=== PATIENT | male | born 1995 | race Caucasian/White ===

== ENCOUNTER 2016-05-31 10:06 | Emergency (ER) | payer BC ==
[2016-05-31 10:10] VITALS: TEMP 97.3
--- NOTE | 2016-05-31 10:31 | EDPHY ---
H & P Time Seen by Provider: 05/31/16 10:12 HPI/ROS: CHIEF COMPLAINT: Headache HISTORY OF PRESENT ILLNESS: 20-year-old male presents with a headache. He was awakened at 4:00 a.m. this morning with a severe headache. The headache has been generalized and constant since then. He was unable to fall back to sleep because of severe headache. Associated with nausea and mild photophobia. He is also quite dizzy when he stands up. Upper respiratory infection 2 weeks ago, completely resolved. Ibuprofen without relief. At 8:00 a.m., he developed bilateral hand numbness and numbness of his face. This numbness has resolved. No prior similar symptoms. No recent head or neck trauma. No chiropractic manipulation. REVIEW OF SYSTEMS: Constitutional: No fever, no chills Eyes: No visual changes ENT: No sore throat Respiratory: No cough, no shortness of breath Cardiac: No chest pain Gastrointestinal: no vomiting, no abdominal pain Genitourinary: No hematuria, no dysuria Musculoskeletal: No leg pain or swelling Skin: No rash Psychiatric: No depression Past Medical/Surgical History: Denies Family history: No known history of migraine headaches or aneurysm Social History: occasional alcohol use, no smoking Smoking Status: Never smoked Physical Exam: General Appearance: Alert, appears in pain Eyes: Pupils equal and round, no conjunctival pallor or injection ENT, Mouth: Mucous membranes moist Neck: Normal inspection, no meningeal signs Respiratory: Lungs are clear to auscultation Cardiovascular: Regular rate and rhythm Gastrointestinal: Abdomen is soft and nontender Neurological: Alert, oriented x3, cranial nerves II through XII intact, motor 5 /5, sensory intact to light touch, normal gait Skin: Warm and dry, no rash Extremities: Nontender, no pedal edema Psychiatric: Mood and affect normal Constitutional: Initial Vital Signs Temperature (C) 36.3 C 05/31/16 10:08 Heart Rate 68 05/31/16 10:08 Respiratory Rate 16 05/31/16 10:08 Blood Pressure 127/71 H 05/31/16 10:08 O2 Sat (%) 95 05/31/16 10:08 O2 Delivery Mode Room Air Allergies/Adverse Reactions: No Known Allergies Allergy (Unverified 05/31/16 10:10) Home Medications: Medication Instructions Recorded Valacyclovir HCl [Valtrex] 2 tab PO Q12H #4 tablet 05/31/16 Medical Decision Making - Diagnostics Imaging: CT scan of the brain read by Dr. Luque reveals a prominent anterior cerebral artery, concerning for aneurysm. Suggest MRI/A of the brain without contrast to rule out aneurysm. MRI/A of the brain read by Dr. Dayday Enrique is normal. Procedures: Procedure: Lumbar puncture. Indication: headache After verbal informed consent from patient explaining the risks of lumbar puncture including infection, bleeding, spinal headache and neurologic damage, a lumbar puncture was performed with the patient in the sitting position after the patient was prepped and draped in the usual fashion. The L4-5 interspace was anesthetized with 1% lidocaine. Approximately 4 cc of clear fluid was obtained. Opening pressure was not obtained. There were no complications. The procedure was performed by myself. ED Course/Re-evaluation: This patient presents with a severe headache. Clinical presentation is concerning for subarachnoid hemorrhage versus meningitis. Plan for CT/LP. Reglan, and Benadryl and Decadron IV given with some relief in pain and complete resolution of nausea. CT scan of the brain read by Dr. Luque reveals prominence of the anterior cerebral artery, concerning for aneurysm. MRI/A of the brain ordered. I will also proceed with lumbar puncture. The patient tolerated lumbar puncture well. IV normal saline 1 L given. Toradol 30 mg IV given. Lumbar puncture results discussed with the patient. He currently feels much better and has only a slight headache. He states that he is thinks he is starting to get a cold sore on his lip. He has previously taken Valtrex for this. I will write a prescription for Valtrex for him. Fortunately there is no evidence of viral/bacterial meningitis or encephalitis. Differential Diagnosis: Headache including but not limited to subarachnoid hemorrhage, encephalitis, migraine headache, tension headache and infectious causes such as meningitis, pharyngitis and sinusitis. - Data Points Laboratory Results: Laboratory Results 05/31/16 10:30 05/31/16 10:30 05/31/16 05/31/16 13:00 10:30 WBC 6.21 10^3/uL (3.80-9.50) RBC 5.30 10^6/uL (4.40-6.38) Hgb 17.1 g/dL (13.7-17.5) Hct 46.3 % (40.0-51.0) MCV 87.4 fL (81.5-99.8) MCH 32.3 pg (27.9-34.1) MCHC 36.9 H g/dL (32.4-36.7) RDW 11.9 % (11.5-15.2) Plt Count 300 10^3/uL (150-400) MPV 9.7 fL (8.7-11.7) Neut % (Auto) 67.7 % (39.3-74.2) Lymph % (Auto) 20.1 % (15.0-45.0) [place] % (Auto) 10.0 % (4.5-13.0) Eos % (Auto) 0.6 % (0.6-7.6) Baso % (Auto) 0.6 % (0.3-1.7) Nucleat RBC Rel Count 0.0 % (0.0-0.2) Absolute Neuts (auto) 4.20 10^3/uL (1.70-6.50) Absolute Lymphs (auto) 1.25 10^3/uL (1.00-3.00) Absolute Monos (auto) 0.62 10^3/uL (0.30-0.80) Absolute Eos (auto) 0.04 10^3/uL (0.03-0.40) Absolute Basos (auto) 0.04 10^3/uL (0.02-0.10) Absolute Nucleated RBC 0.00 10^3/uL (0-0.01) Immature Gran % 1.0 % (0.0-1.1) Immature Gran # 0.06 10^3/uL (0.00-0.10) Sodium 139 mEq/L (134-144) Potassium 4.2 mEq/L (3.5-5.2) Chloride 106 mEq/L (97-110) Carbon Dioxide 22 mEq/l (22-31) Anion Gap 11 mEq/L (8-16) BUN 11 mg/dL (7-23) Creatinine 0.8 mg/dL (0.7-1.3) Estimated GFR > 60 Glucose 103 H mg/dL (70-100) Calcium 9.7 mg/dL (8.5-10.4) CSF Tube Number 4 CSF Appearance CLEAR (CLEAR) CSF Color COLORLESS (COLORLESS) CSF Supernatant Not Reported CSF WBC 0 /mm3 (0-5) CSF RBC 0 /mm3 (0-0) CSF Glucose 56 mg/dL (50-75) CSF Total Protein 30 mg/dL (12-60) Microbiology Results: MICROBIOLOGY 05/31/16 13:00 Cerebral Spinal Fluid Gram Stain - Final Medications Given: Discontinued Medications Dexamethasone (Decadron Injection) 10 mg IVP EDNOW ONE Stop: 05/31/16 10:33 Last Admin: 05/31/16 10:57 Dose: 10 mg Diphenhydramine HCl (Benadryl Injection) 25 mg IVP EDNOW ONE Stop: 05/31/16 10:33 Last Admin: 05/31/16 10:57 Dose: 25 mg Sodium Chloride (Ns) 1,000 mls @ 0 mls/hr IV ONCE ONE PRN Reason: Wide Open Stop: 05/31/16 10:33 Last Admin: 05/31/16 10:57 Dose: 1,000 mls Sodium Chloride (Ns) 1,000 mls @ 0 mls/hr IV ONCE ONE PRN Reason: Wide Open Stop: 05/31/16 13:06 Last Admin: 05/31/16 13:18 Dose: 1,000 mls Ketorolac Tromethamine (Toradol) 30 mg IVP EDNOW ONE Stop: 05/31/16 13:53 Last Admin: 05/31/16 14:04 Dose: 30 mg Metoclopramide HCl (Reglan Injection) 10 mg IVP EDNOW ONE Stop: 05/31/16 10:33 Last Admin: 05/31/16 10:57 Dose: 10 mg Morphine Sulfate (Morphine) 4 mg IVP EDNOW ONE Stop: 05/31/16 13:06 Last Admin: 05/31/16 13:18 Dose: 4 mg Departure - Departure Disposition: Home, Routine, Self-Care Clinical Impression: Headache Qualifiers: Headache type: unspecified Headache chronicity pattern: acute headache Intractability: not intractable Qualifier Code: (R51) Headache Condition: Good Instructions: Acute Headache (ED) Additional Instructions: Your CT scan, MRI and lumbar puncture (spinal tap) are normal today. Take ibuprofen 600mg 3 times daily as needed for headache. Return for worsening symptoms or any concerns. Referrals: Herman Cuevas DO [Medical Doctor] - As per Instructions (Call to make an appointment.) Stand Alone Forms: School Excuse Prescriptions: Valacyclovir HCl [Valtrex] 2 tab PO Q12H #4 tablet
[2016-05-31] MEDS ORDERED: NS 1,000 ML IV ONE ×2 (10:32→13:05)
[2016-05-31] MEDS ORDERED: DEXAMETHASONE 10 MG/ML VIAL IVP ONE (10:32)
[2016-05-31] MEDS ORDERED: METOCLOPRAMIDE 10 MG/2 ML VIAL IVP ONE (10:32)
[2016-05-31 10:48] LABS: ABSOLUTE IMMATURE GRANULOCYTES 0.06 10^3/uL (0.00-0.10); ADD DIFF? NO; ADD MORPH? NO; ADD SCAN? NO; ATYPICAL LYMPHOCYTE FLAG 30 (0-99); FRAGMENT RBC FLAG 10 (0-99); HEMATOCRIT 46.3 % (40.0-51.0); HEMOGLOBIN 17.1 g/dL (13.7-17.5); LEFT SHIFT FLG 10 (0-99); LIPEMIA HEMOLYSIS FLAG 90 (0-99); MEAN CELL HEMOGLOBIN 32.3 pg (27.9-34.1); MEAN CELL HEMOGLOBIN CONCENTR. 36.9 g/dL (32.4-36.7); MEAN CELL VOLUME 87.4 fL (81.5-99.8); MEAN PLATELET VOLUME 9.7 fL (8.7-11.7); PLATELET CLUMPS FLAG 0 (0-99); PLATELET COUNT 300 10^3/uL (150-400); RED CELL DISTRIBUTION WIDTH 11.9 % (11.5-15.2)
--- NOTE | 2016-05-31 10:58 | CT ---
CT Head Without Contrast, 1047 a.m. History: Frontal headaches since 4 a.m., no trauma. Technique: Noncontrast images through the head. Soft tissue and bone window evaluation is performed. Dose reduction techniques were utilized. Findings: The region of the anterior cerebral arteries look subtly more prominent and dense, particul doris on sagittal reconstructions, anterior to the corpus collosum. There is no evidence for parenchymal or obvious subarachnoid hemorrhage, mass lesion, acute infarctio n, intracranial edema, hydrocephalus or abnormal intracranial calcification. There is no midline shif t. The ambient cistern is patent. Bone window evaluation reveals normally aerated paranasal and masto id sinuses. There is no evidence of pneumocephalus. Impression: Subtle increased conspicuity of the anterior cerebral arteries. If clinically indicated c onsider MRI and MRA (vs CTA) for further evaluation. Results discussed with Dr. Gaytan at 10:53 a.m. General information for patients regarding this examination can be found at [email or web address]. If you have questions or comments about this report, please contact me at [phone] (hospital) or [phone] (cell).
[2016-05-31 11:05] LABS: ANION GAP 11 mEq/L (8-16); CALCIUM 9.7 mg/dL (8.5-10.4); CARBON DIOXIDE 22 mEq/l (22-31); CHLORIDE 106 mEq/L (97-110); CREATININE 0.8 mg/dL (0.7-1.3); GLOMERULAR FILTRATION RATE > 60; GLUCOSE 103 mg/dL (70-100); POTASSIUM 4.2 mEq/L (3.5-5.2); SODIUM 139 mEq/L (134-144)
--- NOTE | 2016-05-31 12:19 | MR ---
MR Arteriogram of the [place] 1141 hours Clinical Indications: Headache. R29.818 Neurological changes strongly suggesting intracerebral aneury sm. Technique: A [id number] gradient echo technique was used for thin axial images at the skull base for evaluation of major vessels of the [place]. Three-dimensional technique was used with a 30-degree gradient echo flip angle and a traveling saturation band. Images were manipulated by the radiologist at the computer workstation. Findings: The distal ICA at the base of the brain has a normal appearance. There is no stenosis seen . There is normal branching into the anterior and middle cerebral arteries. There is no aneurysm or c utoff of flow. A posterior communicating artery is seen on each side. The posterior circulation is also normal in appearance. The distal vertebral artery is normal without evidence of stenosis. There is normal appearance of the basilar artery. The superior cerebellar and posterior cerebral arteries are also normal in appearance. There is no aneurysm or cutoff of flow. Impression: Normal MRA of the [place] as detailed above.
--- NOTE | 2016-05-31 12:22 | MR ---
MRI Brain (Without Contrast) 1150 hours History: Severe headache. Possible prominent anterior cerebral artery on CT study. Technique: T1-weighted images were acquired axially and sagittally from the foramen magnum to the ve rtex. Axial fast inversion recovery, fast T2-weighted, susceptibility weighted imaging, and diffusio n-weighted axial images were obtained without contrast. Comparison to CT head study performed earlier today at 1047 hours. Findings: The ventricles, cisterns, and sulci are normal without atrophy, hydrocephalus, midline chandni ft, herniation, or epidural/subdural hematomas. No intracranial hemorrhage or masses. Diffusion weigh gregory sequence demonstrates no acute infarct. Cerebellar tonsils are in normal position. Pituitary glan d is normal in size. Normal signal flow-void in the superior sagittal sinus, basilar artery, and bila teral internal carotid arteries indicating patency. Paranasal sinuses and mastoid air cells are clear . Impression: Normal MRI of the brain without contrast. These findings were discussed by telephone with Dr. Ritika Gaytan at 1220hrs.
[2016-05-31 13:44] LABS: CSF APPEARANCE CLEAR (CLEAR); CSF COLOR COLORLESS (COLORLESS); WBC, CSF 0 /mm3 (0-5)
[2016-05-31] MEDS ORDERED: KETOROLAC 30 MG/1 ML SDV IVP ONE (13:52)
[2016-05-31 13:53] LABS: PROTEIN, CSF 30 mg/dL (12-60)
[2016-05-31 14:01] LABS: CSF APPEARANCE CLEAR (CLEAR); CSF COLOR COLORLESS (COLORLESS); WBC, CSF 0 /mm3 (0-5)
[2016-05-31 15:08] VITALS: BP 126/72; PULSE 74; RESP 16; O2SAT 96
== END 2016-05-31 15:06 | disposition home or self-care (01) ==
PROC: 009U3ZX Drainage of Spinal Canal, Percutaneous Approach, Diagnostic (ICD-10-PCS; principal; 2016-05-31)
DX: R51 Headache (principal)
CPT/HCPCS: 96374; J1200; J1885; J2765